=== PATIENT | female | born 1975 | race Caucasian/White ===

== ENCOUNTER 2017-04-26 09:33 | Emergency (ER) | payer BC ==
[2017-04-26] MEDS ORDERED: ASPIRIN 81 MG (BABY) CHEWABLE TABLET ONE (09:45)
[2017-04-26] MEDS ORDERED: ONDANSETRON 4 MG/2 ML VIAL IVP ONE (09:50)
[2017-04-26] MEDS ORDERED: ASPIRIN 81 MG (BABY) CHEWABLE TABLET PO ONE (09:50)
[2017-04-26] MEDS ORDERED: Sodium Chloride 0.9% 1,000 ML PRIMARY IV ONE (09:50)
[2017-04-26] MEDS ORDERED: MORPHINE SULFATE 4 MG/1 ML IVP ONE (09:50)
[2017-04-26] MEDS ORDERED: NITROGLYCERIN 0.4 MG SL TAB (BOTTLE OF 3) SL ONE (09:51)
--- NOTE | 2017-04-26 09:52 | PDOC ---
Chest Pain HPI - General Chief Complaint: Chest Pain Stated Complaint: chest pain for one week Date Seen by Provider: 04/26/17 Time Seen by Provider: 09:48 Source: Patient Exam Limitations: POSITIVE: No limitations Treatment Prior to Arrival: REPORTS: None Nurse's Notes Reviewed & Considered: Yes - History of Present Illness Initial Comments: This pleasant 41-year-old female comes in today with a one-week history of chest pressure. Her chest pressure is substernal with radiation into her right upper chest. When she has episodes of pressure she developed a slight cough that results after the pressure resolves. She does have some complaints of slight nausea but no vomiting. She has history of migraine headaches but presently no headache. She denies fever chills or sweats, she has some shortness of breath. She denies myalgias and arthralgias, no rashes, no hematuria dysuria. She does have a history of neurofibromatosis. Body Location Affected: REPORTS: Chest Timing: REPORTS: Intermittent Duration: >1 week Severity: Moderate Context: REPORTS: Activity Quality: REPORTS: "Pain", Pressure Radiation: REPORTS: Neck (R), Shoulder (R) Associated Symptoms: REPORTS: Nausea Modifying Factors: improves with: Position Change Similar Symptoms Previously: No Recently seen/treated/hospitalized: No Any Prior Injuries Related to Current Complaint?: No - Patient Home Medications Home Medications: Home Medications Cholecalciferol (Vitamin D3) [Vitamin D3] 2,000 unit PO DAILY #90 cap 07/30/16 Rizatriptan Benzoate [Maxalt] 10 mg PO ONCE #12 tab 03/03/17 Nortriptyline HCl 25 mg PO QHS #30 cap 04/15/17 - Patient Allergies Allergies/Adverse Reactions: Allergies Allergy/AdvReac Type Severity Reaction Status Date / Time No Known Allergies Allergy Verified 04/26/17 09:48 Past Medical History - heen HEENT History: Denies History Cardiovascular History: Denies History Respiratory History: Denies History Gastrointestinal History: Denies History Genitourinary History: Denies History Endocrine History: Denies History Musculoskeletal History: Muscle Weakness Prosthesis or Implant: Yes Additional Musculoskeletal History: RAYNAUDS SYNDROME/ IDIOPATHIC SCOLIOSIS. NEUROFIBROMATOSIS SYNDROME (NF1) Neurological History: Migraines Blood Disorders: Denies History Psychiatric History: Denies History History of Sexually Transmitted Diseases: No Cancer History: Denies History History of MDRO: No History of Other Communicable Diseases: No Alcohol Use: None Substance Use Type: None Previous Surgical History: Yes Type / Date of Surgery: CONE BX, BTL, FIBROMA REMOVED Anesthesia Reactions: No Malignant Hyperthermia: No Significant Family History: Cancer, Hypertension ROS - Limitations ROS Limitations: No Limitations Constitution: REPORTS: Denies Symptoms Cardiovascular: REPORTS: Chest Pain Respiratory: REPORTS: Cough Non Productive, Shortness Of Breath Neurological: REPORTS: Denies Neuro Symptoms Gastrointestinal: REPORTS: Nausea Endocrine: REPORTS: Denies Symptoms Musculoskeletal: REPORTS: Denies MS Symptoms Genitourinary: REPORTS: Denies Symptoms Eyes: REPORTS: Denies Symptoms ENT: REPORTS: Denies Symptoms Skin: REPORTS: Denies Skin Symptoms Lympathic: REPORTS: Denies Lympathic Symptoms Immunologic: POSITIVE: Denies Symptoms Psychiatric: POSITIVE: Denies Psych Symptoms Chest Pain PE - General Appearance General Appearance: REPORTS: Alert, Cooperative, No Acute Distress, No Evidence of Trauma - HEENT HEENT: POSITIVE: Head Inspection Nml, Eyes Inspection Nml, Ears Inspection Nml, Nose Inspection Nml, PERRL, EOMI - Neck Neck: REPORTS: Normal Inspection - Respiratory Respiratory: REPORTS: No Respiratory Distress, Breath Sounds Normal, Chest Non- Tender - Cardiovascular Cardiovascular: REPORTS: Regular Rate and Rhythm, Heart Sounds Normal, Equal Pulses, Strong Pulses, No Murmur, No Gallop, No Friction Rub, No JVD Peripheral Pulses: Radial (R): 3+, Radial (L): 3+ - Abdomen Abdomen: Soft: (All Quadrants), Normal Bowel Sounds: (All Quadrants), Denies Tenderness: (All Quadrants) - Skin Skin: REPORTS: Intact, Normal For Race, Warm, Dry, No Rash - Extremities Extremity: Non-Tender: (All Extremities), Normal ROM: (All Extremities), Normal Inspection: (All Extremities), Pelvis Stable: (All Extremities) - Neurological / Psychological Neurological: POSITIVE: Affect Apporpriate, Oriented X3, Motor Normal, Sensation Normal Reflexes: Patellar (R): 4+, Patellar (L): 3+ Chest Pain Progress - Results Reviewed by me Xrays/CTs/US Reviewed by me: Yes Discussed with Radiologist: Yes Lab Results Reviewed: Yes Lab Results:: Laboratory Results 04/26/17 Range/Units 09:54 WBC 6.65 (4.8-10.8) 10^3/uL RBC 4.57 (4.20-5.40) 10^6/uL Hgb 13.8 (12.0-16.0) g/dL Hct 41.8 (37.0-47.0) % MCV 91.5 (81-99) FL MCH 30.2 (27-31) PG MCHC 33.0 (33-37) g/dL RDW Std Deviation 42.2 (39-50) fL RDW Coeff of [place] 13.0 (11.5-14.5) % Plt Count 312 (140-350) 10*3/uL MPV 9.2 (7.4-12.2) FL Immature Gran % (Auto) 0.2 (0-5) % Neut % (Auto) 62.1 (50-80) % Lymph % (Auto) 26.6 (10-50) % [place] % (Auto) 9.0 (5-15) % Eos % (Auto) 1.5 (0-8) % Baso % (Auto) 0.6 (0-1) % Immature Gran # (Auto) 0.01 10*3/UL Neut # (Auto) 4.13 10*3/UL Lymph # (Auto) 1.77 10*3/uL [place] # (Auto) 0.60 (0.3-0.8) 10*3/UL Eos # (Auto) 0.10 10*3/UL Baso # (Auto) 0.04 10*3/UL WBC Morphology Comment Normal morphology (NORM) Plt Morphology Comment Normal morphology (NORM) RBC Morph Comment Normal morphology (NORM) D-Dimer < 0.19 (0.00-0.59) mg/L Sodium 138 (135-145) meq/L Potassium 3.9 (3.8-5.2) meq/L Chloride 105 (98-112) meq/L Carbon Dioxide 26 (23-33) meq/L Anion Gap 7 (5-20) BUN 9 (7-22) mg/dL Creatinine 0.7 (0.50-1.20) mg/dL Estimated GFR > 60 (>60 ml/min/1.73m(2)) BUN/Creatinine Ratio 12.85 (6-20) Glucose 82 (78-110) mg/dL Calculated Osmolality 283.0 (267-292) mOsm/kg Calcium 8.7 (8.7-10.7) mg/dL Magnesium 1.6 (1.6-2.4) mg/dL Total Bilirubin 0.5 (0.3-1.2) mg/dL AST 43 H (8-39) IU/L ALT 19 (9-52) IU/L Alkaline Phosphatase 56 (38-126) IU/L Troponin I < 0.012 (< 0.040) ng/mL C-Reactive Protein < 0.5 (0.0-0.9) mg/dL Total Protein 6.9 (6.1-8.0) g/dL Albumin 3.9 (3.5-4.8) g/dL Globulin 3.0 (2.50-4.10) g/dL Albumin/Globulin Ratio 1.30 (1.3-2.0) mg/g TSH 1.55 (0.2700-4.2000) uIU/mL EKG Interpretation:: POSITIVE: Normal Sinus Rhythm, Normal Rate, Normal ST/T - Patient's Progress Pain Medication Addressed: POSITIVE: Patient Refused Re-Examine Time: 10:57 Status: POSITIVE: Improved MDM / ED Course: Patient was examined, an IV started, blood drawn and sent to the lab for studies radiographic and EKG studies were also obtained. Patient received sublingual nitroglycerin without change of her chest pain. She also received oral aspirin 324 mg. Findings: CBC is within normal limits, comprehensive metabolic panel is within normal limits, troponin is normal, d-dimer is normal. Chest x-ray is a normal chest radiograph. EKG is interpreted by me shows sinus rhythm rate of 76 beats a minute. Assessment: Chest pain with normal enzymes and EKG. This is likely related to increased stress in her life with the of her stepson one month ago. Plan: Discharge home. I'll prescribe Valium when necessary and follow-up with her primary care physician. Quality Measure Initiative: CP/AMI: POSITIVE: EKG, ASA Quality Measure Initiative: CAP: POSITIVE: CXR or CT - Consult Counseled: POSITIVE: Patient, RE: Lab Results, RE: Radiology Results, RE: DX, RE : Need for F/U Patient Care Time - Estimated PCT Patient Care Time (In Minutes): 30 Vital Signs - Recent Vital Signs Vital Signs: Vital Signs (Last 8 hours) Temp Pulse Pulse Pulse Resp BP Pulse Ox 04/26/17 09:40 74 04/26/17 09:33 97.0 F 82 82 18 123/58 95 - VS Reviewed Vital Signs Reviewed: Yes Discharge Clinical Impression: Chest pain Discharge Disposition: Discharged to Home Condition: Stable Patient Instructions Given at Discharge: Chest Pain (ED), Noncardiac Chest Pain (ED)
[2017-04-26 09:58] VITALS: RESP 18; TEMP 97
[2017-04-26 10:00] LABS: BASOPHILS # (AUTO) 0.04 10*3/UL; BASOPHILS % (AUTO) 0.6 % (0-1); EOSINOPHILS % (AUTO) 1.5 % (0-8); HEMATOCRIT 41.8 % (37.0-47.0); HEMOGLOBIN 13.8 g/dL (12.0-16.0); LYMPHOCYTES # (AUTO) 1.77 10*3/uL; MEAN CORPUSCULAR HEMOGLOBIN 30.2 PG (27-31); MEAN CORPUSCULAR VOLUME 91.5 FL (81-99); MEAN PLATELET VOLUME 9.2 FL (7.4-12.2); NEUTROPHILS # (AUTO) 4.13 10*3/UL; NEUTROPHILS % (AUTO) 62.1 % (50-80); RED BLOOD COUNT 4.57 10^6/uL (4.20-5.40)
[2017-04-26 10:04] LABS: PLATELET MORPHOLOGY COMMENT NORMAL MORPHOLOGY (NORM); RBC MORPHOLOGY COMMENT NORMAL MORPHOLOGY (NORM); WBC MORPHOLOGY COMMENT NORMAL MORPHOLOGY (NORM)
[2017-04-26 10:08] LABS: BLOOD UREA NITROGEN 9 mg/dL (7-22); BUN/CREATININE RATIO 12.85 (6-20); CALCIUM 8.7 mg/dL (8.7-10.7); EST GLOMERULAR FILTRATION > 60 (>60 ml/min/1.73m(2)); MAGNESIUM 1.6 mg/dL (1.6-2.4); SERUM ALBUMIN 3.9 g/dL (3.5-4.8)
[2017-04-26 10:10] LABS: C-REACTIVE PROTEIN < 0.5 mg/dL (0.0-0.9)
--- NOTE | 2017-04-26 10:16 | DI ---
[facility] CHEST X-RAY, 04/26/2017 9:50 AM : Clinical History: Chest pain Previous Exam: October 07, 2010 There is stable dextroscoliosis of the thoracic spine measuring 50? and centered at the mid thoracic spine. Heart size is normal. Lungs are clear. Mediastinal structures are normal. There are no pulmona ry nodules. Reading: No acute disease.
--- NOTE | 2017-04-26 11:59 | EKG ---
[address] [address] Measurements Intervals Jeannette Rate: 74 P: 53 ID: [id number] QRS: -37 QRSD: 98 T: 39 QT: 377 QTc: 404 Interpretive Statements SINUS RHYTHM MARKED LEFT AXIS DEVIATION [QRS AXIS < -30] INTERPRETATION BASED ON A DEFAULT AGE OF 40 YEARS No previous ECG available for comparison and no acute injury patterns Electronically Signed On 04-27-17 12:15:02 MDT by Lukasz Mirza MD [email or web address]
== END 2017-04-26 11:05 | disposition home or self-care (01) ==
LOC: ER 09:33
DX: R07.9 Chest pain, unspecified (principal); R05 Cough; M54.2 Cervicalgia; M25.511 Pain in right shoulder; R11.0 Nausea; R06.02 Shortness of breath
CPT/HCPCS: 71010; 80053; 83735; 84443; 84484; 85025; 85379; 86140; 86738; 93005; 93010; 96360; 99284; J2270; J2405; J7030